=== PATIENT | female | born 1945 | race Caucasian/White ===

== ENCOUNTER 2017-02-18 01:02 | Emergency (ER) | payer MEDICARE, OTHER ==
[2017-02-18] MEDS ORDERED: LISI5TAB7 PO (01:19)
[2017-02-18] MEDS ORDERED: [UNRECOGNIZED DRUG - OTHER] (01:19)
[2017-02-18] MEDS ORDERED: METF500T27 PO (01:19)
[2017-02-18] MEDS ORDERED: ALBUTEROL SULFATE 2.5 MG/3 ML ONE (01:20)
[2017-02-18] MEDS ORDERED: ALBUTEROL SULFATE 2.5 MG/3 ML NPPB ONE ×2 (01:30→02:30)
[2017-02-18 01:46] VITALS: BP 198/86
== END 2017-02-18 03:06 | disposition home or self-care (01) ==
LOC: ED 03:00
DX: J00 Acute nasopharyngitis [common cold] (principal); I10 Essential (primary) hypertension; E11.9 Type 2 diabetes mellitus without complications
CPT/HCPCS: 94640; 99284; J7613